=== PATIENT | male | born 1935 | race Caucasian/White ===

== ENCOUNTER 2018-03-05 09:49 | Inpatient (IN) | payer MEDICARE ==
[~2018-03-05] VITALS: Ht 167.6 cm; Wt 68.6 kg
[2018-03-05] MEDS ORDERED: NORVASC 5MG5 MG/TAB PO (10:34)
[2018-03-05] MEDS ORDERED: FOLIC ACID800 MCG PO (10:34)
[2018-03-05] MEDS ORDERED: LOPRESSOR 550 MG/TAB PO (10:34)
[2018-03-05 10:35] LABS: BASO % 0.4 % (0.0-2.0); EOS # 0.1 (0.0-0.7); EOS % 1.1 % (0-4.0); GRAN # 5.5 (1.4-6.5); GRAN % 72.3 % (42.2-75.2); HEMOGLOBIN 12.4 g/dl (13.5-18.0); LYMPH # 1.2 (1.2-3.4); LYMPH % 16.1 % (20.0-51.0); MEAN CELL VOLUME 96 fl (80.0-100.0); MEAN CORPUSCULAR HEMOGLOBIN 32 pg (27.0-31.0); MEAN CORPUSCULAR HGB CONC 34 g/dl (33.0-37.0); MEAN PLATELET VOLUME 11.1 fl (7.4-10.4); MONO # 0.7 (0.1-0.6); MONO % 9.7 % (1.7-9.3); PLATELET COUNT 223 K/mm3 (130-400); RED BLOOD COUNT 3.84 M/mm3 (4.20-5.60)
[2018-03-05] MEDS ORDERED: HCTZ12.5TAB PO (10:35)
[2018-03-05] MEDS ORDERED: LIPITOR 40MG TA40 MG PO (10:35)
[2018-03-05] MEDS ORDERED: ASPIRIN 32325 MG/TAB PO (10:35)
[2018-03-05] MEDS ORDERED: TYLENOL 500MG500 MG PO (10:36)
[2018-03-05] MEDS ORDERED: ZYRTEC 10MG10 MG PO (10:36)
[2018-03-05] MEDS ORDERED: OMEGA-3 1000 MG1 CAP PO (10:37)
[2018-03-05] MEDS ORDERED: GLUCOSAMINE SU500 M2 PO (10:37)
[2018-03-05] MEDS ORDERED: MULTIPLE VITAMI1 CAP PO (10:38)
[2018-03-05 10:40] LABS: INR 1.2 (0.8-3.0); PROTHROMBIN TIME 13.3 SECONDS (9.7-12.8)
[2018-03-05 10:47] LABS: ALBUMIN 4.1 gm/dL (3.5-5.0); BILIRUBIN,TOTAL 0.4 mg/dL (0.0-1.0); CALCIUM 8.7 mg/dL (8.4-10.2); CREATININE, serum 0.99 mg/dL (0.66-1.25); POTASSIUM 4.1 mmol/L (3.4-5.0); TOTAL PROTEIN 7.1 gm/dL (6.4-8.2)
[2018-03-05 14:19] VITALS: BP 137/66; PULSE 80; TEMP 98.6
[2018-03-05 15:52] VITALS: BP 139/50; PULSE 70; TEMP 98.2
[2018-03-05 19:13] VITALS: BP 152/55; PULSE 76; TEMP 98.2
[2018-03-05 20:24] LABS: HEMOGLOBIN 11.4 g/dl (13.5-18.0)
[2018-03-05 20:25] LABS: HEMATOCRIT 33.1 % (42.0-52.0)
[2018-03-06] VITALS (14 sets, daily range): BP systolic 105–153; BP diastolic 41–100; PULSE 68–104; TEMP 97.8–98.3
[2018-03-06 08:00] LABS: BASO % 0.4 % (0.0-2.0); EOS # 0.2 (0.0-0.7); EOS % 2.6 % (0-4.0); GRAN # 4.7 (1.4-6.5); GRAN % 67.6 % (42.2-75.2); LYMPH # 1.2 (1.2-3.4); LYMPH % 17.9 % (20.0-51.0); MEAN CELL VOLUME 95 fl (80.0-100.0); MEAN CORPUSCULAR HEMOGLOBIN 32 pg (27.0-31.0); MEAN CORPUSCULAR HGB CONC 34 g/dl (33.0-37.0); MEAN PLATELET VOLUME 11.9 fl (7.4-10.4); MONO # 0.8 (0.1-0.6); MONO % 11.1 % (1.7-9.3); PLATELET COUNT 159 K/mm3 (130-400); RED BLOOD COUNT 3.39 M/mm3 (4.20-5.60)
[2018-03-06 08:13] LABS: HEMATOCRIT 32.1 % (42.0-52.0)
[2018-03-06 08:17] LABS: CALCIUM 8.4 mg/dL (8.4-10.2); CREATININE, serum 0.85 mg/dL (0.66-1.25); POTASSIUM 3.6 mmol/L (3.4-5.0)
[2018-03-07] VITALS (7 sets, daily range): BP systolic 110–158; BP diastolic 45–81; PULSE 71–81; TEMP 97.9–98.5
[2018-03-07 07:11] LABS: BASO % 0.6 % (0.0-2.0); EOS # 0.1 (0.0-0.7); EOS % 1.8 % (0-4.0); GRAN # 4.8 (1.4-6.5); GRAN % 70.5 % (42.2-75.2); HEMOGLOBIN 10.2 g/dl (13.5-18.0); LYMPH % 15.1 % (20.0-51.0); MEAN CELL VOLUME 95 fl (80.0-100.0); MEAN CORPUSCULAR HEMOGLOBIN 32 pg (27.0-31.0); MEAN CORPUSCULAR HGB CONC 34 g/dl (33.0-37.0); MEAN PLATELET VOLUME 11.1 fl (7.4-10.4); MONO # 0.8 (0.1-0.6); MONO % 11.6 % (1.7-9.3); PLATELET COUNT 176 K/mm3 (130-400); RED BLOOD COUNT 3.17 M/mm3 (4.20-5.60); REDCELL DISTRIBUTION WIDTH-CV 13.1 % (11.5-14.5)
[2018-03-07 07:15] LABS: HEMATOCRIT 30.1 % (42.0-52.0)
[2018-03-07 07:27] LABS: CALCIUM 8.1 mg/dL (8.4-10.2); CREATININE, serum 0.91 mg/dL (0.66-1.25); POTASSIUM 3.4 mmol/L (3.4-5.0)
[2018-03-07 20:28] LABS: PH 6 (5-8); SQUAMOUS EPITHELIAL None Seen /hpf; URINE APPEARANCE Clear; URINE BACTERIA None Seen /hpf; URINE BILIRUBIN Negative (NEGATIVE); URINE BLOOD Negative (NEGATIVE); URINE COLOR Yellow; URINE GLUCOSE 1+ (NEGATIVE); URINE KETONE Negative (NEGATIVE); URINE LEUKOCYTE ESTERASE Negative (NEGATIVE); URINE NITRATE Negative (NEGATIVE); URINE PROTEIN(semi-quant) Negative (NEGATIVE); URINE RBC None Seen /hpf; URINE UROBILINOGEN Negative (NEGATIVE); URINE WBC 0-2 /hpf
[2018-03-07 20:41] LABS: COLLECTION METHOD CLEAN CATCH
[2018-03-08] VITALS (12 sets, daily range): BP systolic 107–159; BP diastolic 51–67; PULSE 60–100; TEMP 97.5–98.4
[2018-03-08 07:17] LABS: BASO % 0.4 % (0.0-2.0); EOS # 0.2 (0.0-0.7); GRAN # 3.7 (1.4-6.5); GRAN % 67.3 % (42.2-75.2); HEMOGLOBIN 10.4 g/dl (13.5-18.0); LYMPH % 17.6 % (20.0-51.0); MEAN CELL VOLUME 95 fl (80.0-100.0); MEAN CORPUSCULAR HEMOGLOBIN 32 pg (27.0-31.0); MEAN CORPUSCULAR HGB CONC 33 g/dl (33.0-37.0); MEAN PLATELET VOLUME 11.1 fl (7.4-10.4); MONO # 0.6 (0.1-0.6); MONO % 10.1 % (1.7-9.3); PLATELET COUNT 182 K/mm3 (130-400); RED BLOOD COUNT 3.27 M/mm3 (4.20-5.60); REDCELL DISTRIBUTION WIDTH-CV 13.1 % (11.5-14.5)
[2018-03-08 07:23] LABS: HEMATOCRIT 31.1 % (42.0-52.0)
[2018-03-08 07:24] LABS: CREATININE, serum 0.9 mg/dL (0.66-1.25); POTASSIUM 3.4 mmol/L (3.4-5.0)
[2018-03-09 00:51] VITALS: BP 164/68; PULSE 77; TEMP 97.2
[2018-03-09 04:41] VITALS: BP 116/46; PULSE 72; TEMP 98.7
[2018-03-09 06:04] LABS: BASO % 0.1 % (0.0-2.0); GRAN # 9.4 (1.4-6.5); GRAN % 82.6 % (42.2-75.2); LYMPH # 0.9 (1.2-3.4); MEAN CELL VOLUME 97 fl (80.0-100.0); MEAN CORPUSCULAR HGB CONC 33 g/dl (33.0-37.0); MEAN PLATELET VOLUME 10.8 fl (7.4-10.4); MONO % 8.9 % (1.7-9.3); PLATELET COUNT 172 K/mm3 (130-400); RED BLOOD COUNT 2.89 M/mm3 (4.20-5.60); REDCELL DISTRIBUTION WIDTH-CV 13.2 % (11.5-14.5)
[2018-03-09 06:06] LABS: HEMATOCRIT 27.9 % (42.0-52.0); HEMOGLOBIN 9.3 g/dl (13.5-18.0); MEAN CORPUSCULAR HEMOGLOBIN 32 pg (27.0-31.0)
[2018-03-09 06:16] LABS: CALCIUM 7.6 mg/dL (8.4-10.2); CREATININE, serum 1.09 mg/dL (0.66-1.25); POTASSIUM 3.9 mmol/L (3.4-5.0)
[2018-03-09 08:03] VITALS: BP 130/55; PULSE 79; TEMP 97.9
[2018-03-09 11:36] VITALS: BP 114/44; PULSE 65; TEMP 97.2
[2018-03-09 16:12] VITALS: BP 96/42; PULSE 61; TEMP 97.2
[2018-03-09 20:30] VITALS: BP 112/50; PULSE 75; TEMP 97.5
[2018-03-10 00:34] VITALS: BP 109/49; PULSE 67; TEMP 97.9
[2018-03-10 04:53] VITALS: BP 129/52; PULSE 77; TEMP 97.6
[2018-03-10 07:32] VITALS: BP 121/55; PULSE 70; TEMP 97.9
[2018-03-10 07:40] LABS: BASO % 0.4 % (0.0-2.0); EOS # 0.3 (0.0-0.7); EOS % 3.5 % (0-4.0); GRAN # 4.7 (1.4-6.5); GRAN % 66.9 % (42.2-75.2); LYMPH # 1.3 (1.2-3.4); MEAN CELL VOLUME 98 fl (80.0-100.0); MEAN CORPUSCULAR HGB CONC 33 g/dl (33.0-37.0); MEAN PLATELET VOLUME 11.1 fl (7.4-10.4); MONO # 0.8 (0.1-0.6); MONO % 10.8 % (1.7-9.3); PLATELET COUNT 179 K/mm3 (130-400); RED BLOOD COUNT 2.94 M/mm3 (4.20-5.60); REDCELL DISTRIBUTION WIDTH-CV 13.6 % (11.5-14.5)
[2018-03-10 07:41] LABS: HEMATOCRIT 28.7 % (42.0-52.0); HEMOGLOBIN 9.5 g/dl (13.5-18.0); MEAN CORPUSCULAR HEMOGLOBIN 32 pg (27.0-31.0)
[2018-03-10 07:47] LABS: CALCIUM 7.5 mg/dL (8.4-10.2); CREATININE, serum 0.99 mg/dL (0.66-1.25); POTASSIUM 3.5 mmol/L (3.4-5.0)
[2018-03-10 12:10] VITALS: BP 140/63; PULSE 78; TEMP 97.4
[2018-03-10 16:04] VITALS: BP 124/61; PULSE 78; TEMP 98.3
[2018-03-10 21:04] VITALS: BP 134/63; PULSE 80; TEMP 98.5
[2018-03-11 03:51] VITALS: BP 148/63; PULSE 88; TEMP 98.5
[2018-03-11 06:39] LABS: BASO % 0.2 % (0.0-2.0); EOS # 0.4 (0.0-0.7); EOS % 3.7 % (0-4.0); GRAN # 7.4 (1.4-6.5); GRAN % 73.3 % (42.2-75.2); HEMOGLOBIN 10.6 g/dl (13.5-18.0); LYMPH # 1.2 (1.2-3.4); LYMPH % 12.3 % (20.0-51.0); MEAN CELL VOLUME 98 fl (80.0-100.0); MEAN CORPUSCULAR HEMOGLOBIN 32 pg (27.0-31.0); MEAN CORPUSCULAR HGB CONC 33 g/dl (33.0-37.0); MEAN PLATELET VOLUME 11.1 fl (7.4-10.4); MONO % 10.2 % (1.7-9.3); PLATELET COUNT 218 K/mm3 (130-400); RED BLOOD COUNT 3.31 M/mm3 (4.20-5.60); REDCELL DISTRIBUTION WIDTH-CV 13.6 % (11.5-14.5)
[2018-03-11 06:49] LABS: HEMATOCRIT 32.3 % (42.0-52.0)
[2018-03-11 07:04] LABS: CALCIUM 8.1 mg/dL (8.4-10.2); CREATININE, serum 0.87 mg/dL (0.66-1.25); POTASSIUM 3.6 mmol/L (3.4-5.0)
[2018-03-11 07:40] VITALS: BP 159/69; PULSE 81; TEMP 98.3
[2018-03-11 11:48] VITALS: BP 122/62; PULSE 67; TEMP 98.3
[2018-03-11 15:27] VITALS: BP 129/55; PULSE 77; TEMP 98.3
== END 2018-03-11 16:50 | disposition home or self-care (01) | DRG 330 ==
LOC: COL.ER 09:49 → SURG 12:10
PROVIDERS: Emergency Medicine; Hospitalist; Internal Medicine; Physician Assistant; Surgery
PROC: 0DJ08ZZ Inspection of Upper Intestinal Tract, Via Natural or Artificial Opening Endoscopic (ICD-10-PCS; 2018-03-06)
PROC: 0DBL8ZX Excision of Transverse Colon, Via Natural or Artificial Opening Endoscopic, Diagnostic (ICD-10-PCS; 2018-03-06)
PROC: 8E0W4CZ Robotic Assisted Procedure of Trunk Region, Percutaneous Endoscopic Approach (ICD-10-PCS; 2018-03-08)
PROC: 0DBL0ZZ Excision of Transverse Colon, Open Approach (ICD-10-PCS; principal; 2018-03-08 13:00)
DX: C18.5 Malignant neoplasm of splenic flexure (principal); D62 Acute posthemorrhagic anemia; I25.10 Atherosclerotic heart disease of native coronary artery without angina pectoris; Z95.1 Presence of aortocoronary bypass graft; I10 Essential (primary) hypertension; E78.5 Hyperlipidemia, unspecified; D63.0 Anemia in neoplastic disease; H04.123 Dry eye syndrome of bilateral lacrimal glands; N32.89 Other specified disorders of bladder
CPT/HCPCS: 99223-AI; 99231-AI; 99232-AI; 99233-AI; A4314; A9284; C9113; J0690; J1100; J1650; J1885; J2250; J2405; J2704; J7030; J7120; Q9967

== ENCOUNTER 2019-04-15 10:35 | Day surgery (SDC) | payer MEDICARE ==
[~2019-04-15] VITALS: Ht 167.6 cm; Wt 75.9 kg
[~2019-04-15 10:35] MED LIST: ASPIRIN 32325 MG/TAB PO; FOLIC ACID 11 MG/TA1 PO; GLUCOSAMINE SUL1 TAB PO; HCTZ12.5TAB PO; LIPITOR 40MG TA40 MG PO; LOPRESSOR 550 MG/TAB PO; MULTIPLE VITAMI1 TA5 PO; NORVASC 5MG5 MG/TAB PO; OMEGA-3 1000 MG1 CAP PO; TYLENOL 500MG500 MG PO; ZYRTEC 10MG10 MG PO
[2019-04-15] MEDS ORDERED: HCTZ12.5TAB PO (10:56)
[2019-04-15] MEDS ORDERED: METAMUCIL3.4 GM/DOS PO (10:57)
[2019-04-15 11:32] VITALS: BP 148/75; PULSE 77; TEMP 97.8
[2019-04-15 12:30] VITALS: BP 138/67; PULSE 72; TEMP 98
[2019-04-15 12:45] VITALS: BP 93/74; PULSE 74
[2019-04-15 13:00] VITALS: BP 119/59; PULSE 69
[2019-04-15 13:15] VITALS: BP 129/60; PULSE 67
--- NOTE | 2019-04-15 13:44 | NUR ---
Pt returned via cart to GI bay 2. Ambulated to recliner in bay with SBA. Son in room. VSS-see flowsheet. Pt tolerated applesause, muffin and juice. Dr Tesfaye in to visit with pt post procedure. IV removed and pressure dressing applied. Discharge teaching completed, pt and son verbalized understanding. Taken via wheelchair to exit of facility for dc home in private vehicle with son to drive.
== END 2019-04-15 13:45 | disposition home or self-care (01) ==
LOC: SDCO 10:35
DX: Z12.11 Encounter for screening for malignant neoplasm of colon (principal); D12.2 Benign neoplasm of ascending colon; K63.89 Other specified diseases of intestine; K57.30 Diverticulosis of large intestine without perforation or abscess without bleeding; I25.10 Atherosclerotic heart disease of native coronary artery without angina pectoris; M19.90 Unspecified osteoarthritis, unspecified site; E78.00 Pure hypercholesterolemia, unspecified; I10 Essential (primary) hypertension; Z88.2 Allergy status to sulfonamides; Z80.0 Family history of malignant neoplasm of digestive organs; Z95.1 Presence of aortocoronary bypass graft; Z86.010 Personal history of colon polyps; Z85.038 Personal history of other malignant neoplasm of large intestine
CPT/HCPCS: J2704; J7030